=== PATIENT | female | born 1990 | race Caucasian/White ===

== ENCOUNTER 2018-12-22 17:30 | Emergency (ER) | payer MEDICAID ==
[~2018-12-22] VITALS: Ht 165.1 cm; Wt 103.4 kg
[2018-12-22 17:34] VITALS: Ht 165.1 cm; Wt 103.4 kg
[2018-12-22 20:42] VITALS: BP 140/91
== END 2018-12-22 20:42 | disposition home or self-care (01) ==
LOC: ED 17:30
DX: R42 Dizziness and giddiness (principal); H53.8 Other visual disturbances; R51 Headache; Z91.013 Allergy to seafood
CPT/HCPCS: 82962